=== PATIENT | female | born 1965 | race American Indian/Alaskan Native ===

== ENCOUNTER 2019-06-20 23:31 | Emergency (ER) | payer OTHER ==
[2019-06-21 01:14] VITALS: BP 136/91
--- NOTE | 2019-06-21 03:03 | Cat Scan Report ---
CT head/brain wo con INDICATION / CLINICAL INFORMATION: Patient complains of a headache since 4 pm yesterday. No trauma, pain is located frontal and posterio r.. TECHNIQUE: Axial CT imaging of the brain was obtained without contrast. Coronal and sagittal reformatted imaging obtained and reviewed. All CT scans at this location are performed using CT dose reduction for ALAR A by means of automated exposure control. COMPARISON: None available. FINDINGS: No acute intracranial abnormality. No intracranial hemorrhage, mass, or midline shift is identified. No extra-axial fluid collection or suggestion of acute CVA. Ventricular system and basilar cisterns a re unremarkable. Visualized paranasal sinuses and mastoid air cells are well aerated and clear. No calvarial abnormali ty. IMPRESSION: 1. Negative noncontrasted head CT scan. Signer Name: Candida Parker MD Signed: 06/21/2019 2:58 AM Workstation Name: [id number]
[2019-06-21] MEDS ORDERED: KETOROLAC 60 MG/2 ML INJ IM STA (03:06)
[2019-06-21] MEDS ORDERED: HYDROcodone/ACETAMINOPHEN 5-325 MG TAB PO STA (03:06)
--- NOTE | 2019-06-21 03:11 | Emergency Department Report ---
ED Headache HPI - General Chief Complaint: Headache Stated Complaint: SEVERE HEADACHE Time Seen by Provider: 06/21/19 02:22 - History of Present Illness Timing/Duration: 4-6 hours, waxing and waning Head Injury Location: frontal, occipital Recent Head Trauma: no recent headache/trauma Associated Symptoms: nasal congestion. denies: confusion, facial pain, flushing, nausea/vomiting, seizures, sinus infection Allergies/Adverse Reactions: Allergies No Known Allergies Allergy (Verified 01/15/16 13:21) Home Medications: Ambulatory Orders Butalb/Acetamin/Caff 50-325-40 [Fioricet 50-325-40] 1 tab PO Q6HR PRN #14 tab 06/21/19 ED Review of Systems ROS: Stated complaint: SEVERE HEADACHE Other details as noted in HPI Comment: All other systems reviewed and negative ED Past Medical Hx - Past Medical History Hx Renal Disease: No Hx Seizures: No - Social History Smoking Status: Never Smoker Substance Use Type: None - Medications Home Medications: Home Medications Medication Instructions Recorded Confirmed Last Taken Type Butalb/Acetamin/Caff 50-325-40 1 tab PO Q6HR PRN #14 tab 06/21/19 Unknown Rx [Fioricet 50-325-40] ED Physical Exam - General Limitations: No Limitations General appearance: alert, in no apparent distress - Head Head exam: Present: atraumatic, normocephalic, normal inspection - Eye Eye exam: Present: normal appearance, PERRL, EOMI, other (Negative funduscopic examination.). Absent: nystagmus, periorbital swelling, periorbital tenderness - ENT ENT exam: Present: normal exam, normal orophraynx, mucous membranes moist - Neck Neck exam: Present: normal inspection, tenderness, full ROM. Absent: meningismus, lymphadenopathy, thyromegaly - Respiratory Respiratory exam: Present: normal lung sounds bilaterally. Absent: respiratory distress, wheezes, rales, rhonchi, chest wall tenderness - Cardiovascular Cardiovascular Exam: Present: regular rate, normal rhythm. Absent: systolic murmur, diastolic murmur, rubs, gallop - GI/Abdominal GI/Abdominal exam: Present: soft, normal bowel sounds - Extremities Exam Extremities exam: Present: normal inspection - Back Exam Back exam: Present: normal inspection - Neurological Exam Neurological exam: Present: alert, oriented X3 - Psychiatric Psychiatric exam: Present: normal affect, normal mood - Skin Skin exam: Present: warm, dry, intact, normal color. Absent: rash ED Course Vital Signs 06/20/19 23:52 Temperature 98.0 F Pulse Rate 87 Respiratory 12 Rate Blood Pressure 136/91 O2 Sat by Pulse 99 Oximetry ED Medical Decision Making - Medical Decision Making This patient presents with a headache most consistent with migraine. Differential diagnosis includes migraine versus tension type headache. No headache red flags. Neurologic exam without evidence of meningismus, focal neurologic findings.Based on the patient's history and physical there is very low clinical suspicion for significant intracranial pathology. The headache was NOT sudden onset, NOT maximal at onset, there are NO neurologic findings, the patient does NOT have a fever, the patient does NOT have any jaw claudication, the patient does NOT endorse a clotting disorder, patient DENIES any trauma or eye pain and the headache is NOT associated with dizziness or ataxia. Presentation not consistent with acute intracranial bleed to include SAH (lack of risk factors, headache history). Presentation not consistent with acute [employer] infection to include meningitis or brain abscess, Temporal arteritis unlikely, as is acute angle closure glaucoma given history and physical findings. Presentation not consistent with other acute, emergent causes of headache at this time. Plan to treat symptomatically with pain medication. No indication for imaging/LP at this time. Plan: pain medication, CT brain was normal, serial reassessment Critical care attestation.: If time is entered above; I have spent that time in minutes in the direct care of this critically ill patient, excluding procedure time. ED Disposition Clinical Impression: Cephalgia Disposition: DC-01 TO HOME OR SELFCARE Is pt being admited?: No Does the pt Need Aspirin: No Condition: Stable Instructions: Acute Headache (ED), Migraine Headache (ED), Cluster Headache (ED) Prescriptions: Butalb/Acetamin/Caff 50-325-40 [Fioricet 50-325-40] 1 tab PO Q6HR PRN #14 tab PRN Reason: Headache Referrals: PRIMARY CARE, [Primary Care Provider] - 3-5 Days LÓPEZ BUSTAMANTE MD [Referring] - 3-5 Days JULES FRIAS MD [Referring] - 3-5 Days EUSEBIO KENNY MD [Referring] - 3-5 Days TASHA MARTINES MD [Referring] - 3-5 Days
== END 2019-06-21 03:21 | disposition home or self-care (01) ==
LOC: ED 23:31
DX: R51 Headache (principal); Z79.899 Other long term (current) drug therapy
CPT/HCPCS: 70450; 96372; 99283; J1885